=== PATIENT | male | born 1995 | race African-American/Black ===

== ENCOUNTER 2019-07-18 21:22 | Emergency (ER) | payer MEDICAID, SELFPAY ==
--- NOTE | ~2019-07-18 | XR_ITS ---
EXAMINATION: XR chest 2V DATE: 07/18/2019 21:58 INDICATION: Left chest pain. TECHNIQUE: Frontal and lateral views of the chest were obtained. COMPARISON: None. FINDINGS: The chest demonstrates clear lungs without pneumonia, pleural effusion, or pneumothorax. Th e heart size is normal. IMPRESSION: 1. No acute cardiopulmonary disease. Reviewed, dictated and finalized at location A.
[2019-07-18 21:27] VITALS: BP 147/104; PULSE 83; RESP 14; TEMP 36.8; O2SAT 100
--- NOTE | 2019-07-18 21:32 | ECG_ITS ---
Measurements Intervals [place] Rate: 80 P: 88 [place]: 175 QRS: 66 QRSD: 94 T: 58 QT: 352 QTc: 406 Interpretive Statements SINUS RHYTHM BASELINE ARTIFACT- I, II, III, AVR, AVL NORMAL ECG Electronically Signed On 07-19-2019 7:11:22 CDT by Reyes Rivera D.O.
[2019-07-18 21:34] VITALS: PULSE 82
[2019-07-18] MEDS: ASPIRIN 81 MG CHEWABLE TABLET 324 MG PO (21:52)
[2019-07-18 22:23] LABS: Basophils Percent Auto 0.5 % (0.2-1.2); Eosinophils Absolute Auto 0.2 K/mm3 (0-0.3); Eosinophils Percent Auto 2.6 % (0-4.4); Hematocrit 44.4 % (42.0-52.0); Hemoglobin 14.9 g/dL (14.0-18.0); Immature Granulocyte Absolute 0.01 K/mm3 (0.00-0.031); Immature Granulocyte Percent A 0.2 % (0-0.5); Lymphocytes Absolute Auto 2.83 K/mm3 (0.9-3.2); Lymphocytes Percent Auto 46.8 % (18.3-44.2); Mean Corpuscular HGB Conc 33.6 g/dl (32-36); Mean Corpuscular Volume 86.4 fl (80-100); Mean Platelet Volume 9.9 fl (7.4-10.4); Monocytes Absolute Auto 0.5 K/mm3 (0.1-0.6); Monocytes Percent Auto 8.3 % (2.6-8.5); Neutrophils Absolute Auto 2.5 K/mm3 (1.3-6.7); Neutrophils Percent Auto 41.6 % (45.5-73.1); Platelet Count Result 256 k/mm3 (150-375); Red Blood Count 5.14 M/mm3 (4.6-6.20); Red Cell Distribution Width 12.5 % (11.5-14.5); White Blood Count 6.1 K/mm3 (4.5-10.0)
[2019-07-18 22:30] LABS: Partial Thromboplastin Time 30.4 SECONDS (22.3-36.8)
[2019-07-18 22:38] VITALS: BP 120/78; PULSE 63; RESP 20; O2SAT 100
--- NOTE | 2019-07-18 22:43 | ED.CHESTPAIN ---
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 Worse with breathing, patient reports a lot of lifting and pushing at work.. Currently feeling okay. Patient does not smoke or drink, healthy otherwise Related Data Home Medications Medication Instructions Recorded Confirmed atenolol 25 mg PO DAILY 07/18/19 Allergies Allergy/AdvReac Type Severity Reaction Status Date / Time No Known Allergies Allergy Verified 07/18/19 21:33 Review of Systems Review of Systems: Narrative: CONSTITUTIONAL: Denies fever, chills, or sweats. EYES: Denies visual changes, redness, or discharge. ENT: Denies rhinorrhea, congestion, sore throat, or otalgia. CARDIOVASCULAR: Denies chest pain, palpitations, or edema. RESPIRATORY: Denies cough or dyspnea. GASTROINTESTINAL: Denies abdominal pain, nausea, vomiting, or diarrhea. GENITOURINARY: Denies dysuria or hematuria. SKIN: Denies rash or itching. MUSCULOSKELETAL: Denies back pain, joint pain, or myalgia. NEUROLOGIC: Denies headache, numbness, or weakness. PSYCHIATRIC: Denies anxiety or depression. [facility] Social History Social History Gender identity (if verbalized by the patient): Male Exam Narrative: Exam Narrative: General appearance: Well-developed, well-nourished Skin: Normal color Head: Normocephalic, nontraumatic Eyes: Clear conjunctiva ENT: Oropharynx normal, ears normal, nose normal Neck: Supple, nontender Chest and respiratory: Airway patent, no respiratory distress, no accessory muscle use Heart: Regular rate/rhythm Abdomen: Soft, nontender, no organomegaly, quiet bowel sounds Vascular: Normal peripheral pulses, normal capillary refill. Musculoskeletal: Normal range of motion, nontender back Neurologic: Alert and oriented ?3, [employer] is normal as tested, no gross motor deficit Course Course Emergency Course: Stable Vital Signs Vital signs: Vital Signs Temperature 36.8 C 07/18/19 21:27 Pulse Rate 83 07/18/19 21:27 Respiratory Rate 14 07/18/19 21:27 Blood Pressure 147/104 H 07/18/19 21:27 Pulse Oximetry 100 07/18/19 21:27 Temperature 36.8 C 07/18/19 21:27 Pulse Rate 63 07/18/19 22:38 Respiratory Rate 20 07/18/19 22:38 Blood Pressure 120/78 07/18/19 22:38 Pulse Oximetry 100 07/18/19 22:38 MDM - Chest Pain MDM Narrative Medical decision making narrative: Noncardiac chest pain is my concern. Chest x-ray, EKG, labs ordered. Further plan to follow Differential Diagnosis Differential diagnosis: Likely pneumothorax, atypical chest pain and costochondritis Lab Data Result diagrams: 07/18/19 22:14 Labs: Lab Results 07/18/19 07/18/19 07/18/19 Range/Units 22:14 22:14 22:14 WBC 6.1 (4.5-10.0) K/mm3 RBC 5.14 (4.6-6.20) M/mm3 Hgb 14.9 (14.0-18.0) g/dL Hct 44.4 (42.0-52.0) % MCV 86.4 (80-100) fl MCH 29.0 (26-34) pg MCHC 33.6 (32-36) g/dl RDW 12.5 (11.5-14.5) % Plt Count 256 (150-375) k/mm3 MPV 9.9 (7.4-10.4) fl Immature Gran % (Auto) 0.2 (0-0.5) % Neut % (Auto) 41.6 L (45.5-73.1) % Lymph % (Auto) 46.8 H (18.3-44.2) % [place] % (Auto) 8.3 (2.6-8.5) % Eos % (Auto) 2.6 (0-4.4) % Baso % (Auto) 0.5 (0.2-1.2) % Lymph # (Auto) 2.83 (0.9-3.2) K/mm3 [place] # (Auto) 0.5 (0.1-0.6) K/mm3 Eos # (Auto)
[2019-07-18 22:46] LABS: Troponin I < 0.012 ng/mL (0.000-0.034)
[2019-07-18 23:27] VITALS: BP 116/71; PULSE 60; RESP 15; O2SAT 98
== END 2019-07-18 23:28 | disposition home or self-care (01) ==
PROVIDERS: Emergency Provider Emergency Medicine
DX: R07.89 Other chest pain (principal)
CPT/HCPCS: 36415; 71046; 84484; 85025; 85730; 93005; 99284; A9270

== ENCOUNTER 2023-08-28 20:27 | Emergency (ER) | payer OTHER, SELFPAY ==
[2023-08-28 20:53] VITALS: BP 144/70; PULSE 81; RESP 16; TEMP 36.8; O2SAT 99
[2023-08-28 21:24] LABS: Strep Group A RT-PCR DETECTED (Negative)
[2023-08-28 21:39] LABS: Influenza A QL RT-PCR Negative (Negative); Influenza B QL RT-PCR Negative (Negative); RSV RNA, RT-PCR Negative (Negative); SARS-CoV-2 RNA PCR Negative (Negative)
--- NOTE | 2023-08-28 21:49 | ED.GENADULT ---
HPI - General Adult General Chief complaint: Dental/Oral Stated complaint: SORE THROAT Time Seen by Provider: 08/28/23 21:48 History of Present Illness HPI narrative: Patient is a 28 year old male with history of SVT, on atenolol here with sore throat. He notes that he was watching his son and stepson over the weekend and was unaware that they had strep throat. On Friday he began having a sore throat and some pain with swallowing. He notes subjective fever on Friday. He has been able to swallow his secretions without difficulty. He notes some pain with swallowing. He denies any difficulty breathing. He does believe that he has had some swollen lymph nodes in his neck. He has not taken anything for his pain at home. No associated cough, congestion, diarrhea, abdominal pain. Related Data Home Medications Medication Instructions Recorded Confirmed atenolol 25 mg tablet 25 mg PO DAILY 07/18/19 Allergies Allergy/AdvReac Type Severity Reaction Status Date / Time No Known Allergies Allergy Verified 08/28/23 20:56 Review of Systems Review of Systems: All systems reviewed & are unremarkable except as noted in HPI and below PMFSH Social History Social History Gender identity (if verbalized by the patient): Male Exam Narrative: GENERAL: Well-appearing, well-nourished, and in no acute distress. HEAD: Normocephalic, atraumatic. EYES: PERRLA and EOMI. ENT: Nares clear. Mucous membranes moist. Posterior pharyngeal erythema and edema, uvula midline, no obvious parapharyngeal abscess. [place] anterior cervical lymphadenopathy present bilaterally. No stridor. NECK: Supple. CHEST: Clear to auscultation. No respiratory distress. HEART: Regular rate and rhythm. Normal peripheral pulses. ABDOMEN: Soft, nontender, nondistended. EXTREMITIES: Normal range of motion. No edema. SKIN: Warm, dry, no rash. NEURO: No focal deficits. Alert and oriented x3. PSYCH: Normal mood and affect. Course Course Emergency Course: Chart review performed. Patient here a sore throat swollen tonsils since Friday. Triage vitals grossly normal. Triage workup shows negative influenza, negative RSV, negative COVID. He is positive for group a strep. Patient seen evaluated, nontoxic appearing, low suspicion for deep space infection. He is strep positive. Initially planned on pen VK as well as a dose of Decadron to help with symptoms however patient states that he hates taking pills. Will do IM dose of pen G. Patient advised follow-up close with his primary care doctor and take Tylenol and ibuprofen as needed for pain at home. The results of pertinent diagnostic studies and exam findings were discussed. The patient?s provisional diagnosis and plan of care were discussed with the patient and present family. The patient and/or present family expressed understanding of the diagnosis and plan. The nurse was instructed to provide written instructions and appropriate follow-up information. The patient understands their need and responsibility to obtain additional follow-up as instructed. The risks of medications administered and prescribed were discussed with the patient and family present. Vital Signs Vital signs: Vital Signs Temperature 98.3 F 08/28/23 20:53 Pulse Rate 81 08/28/23 20:53 Respiratory Rate 16 08/28/23 20:53 Blood Pressure 144/70 H 08/28/23 20:53 Pulse Oximetry 99 08/28/23 20:53 Oxygen Delivery Room Air 08/28/23 20:53 Temperature 98.3 F 08/28/23 20:53 Pulse Rate 81 08/28/23 20:53 Respiratory Rate 16 08/28/23 20:53 Blood Pressure 144/70 H 08/28/23 20:53 Pulse Oximetry 99 08/28/23 20:53 Oxygen Delivery Room Air 08/28/23 20:53 Medical Decision Making Vital Signs Vital Signs: Vital Signs Temperature 98.3 F 08/28/23 20:53 Pulse Rate 81 08/28/23 20:53 Respiratory Rate 16 08/28/23 20:53 Blood Pressure 144/70 H 08/28/23 20
[2023-08-28] MEDS: dexAMETHasone SOD PHOS INJ 10 MG/ML 1 ML VIAL BY MOUTH (22:01)
[2023-08-28] MEDS: PENICILLIN G BENZATHINE 1,200,000 UNITS/2 ML SYRINGE 1200000 UNITS IM (22:19)
[2023-08-28 22:33] VITALS: BP 138/77; PULSE 67; RESP 18; TEMP 36.6; O2SAT 99
== END 2023-08-28 22:34 | disposition home or self-care (01) ==
LOC: ANHED 22:31
PROVIDERS: Emergency Medicine; Emergency Provider Student in an Organized Health Care Education/Training Program
DX: J02.0 Streptococcal pharyngitis (principal); Z20.822 Contact with and (suspected) exposure to COVID-19
CPT/HCPCS: 87637; 87651; 96372; 99283; J0561; J1100

== ENCOUNTER 2025-02-25 10:32 | Emergency (ER) | payer OTHER, SELFPAY ==
[2025-02-25 10:47] VITALS: BP 151/87; PULSE 85; RESP 18; TEMP 36.2; O2SAT 99
--- NOTE | 2025-02-25 11:09 | ED_ITS ---
HPI - General Adult General Chief complaint: Unspecified Stated complaint: Medicine Refill Time Seen by Provider: 02/25/25 11:11 Source: patient, RN notes reviewed and old records reviewed Mode of arrival: ambulatory Limitations: no limitations History of Present Illness HPI narrative: 29-year-old male presents to the [facility] with wanting a refill on his atenolol 25 mg. According to his medical record the last 2 refills came from [facility]. multiple refills had come from different urgent cares. Patient states he has not found time to get a primary care provider. Denies any symptoms currently Related Data Home Medications ?Medication ?Instructions ?Recorded ?Confirmed ?Last Taken ?Type atenolol 25 mg tablet 25 mg PO DAILY 07/18/19 Unk nown History Allergies Allergy/AdvReac Type Severity Reaction Status Date / Time No Known Allergies Allergy Verified 02/25/25 11:08 Review of Systems Review of Systems: All systems reviewed & are unremarkable except as noted in HPI and below Constitutional: Constitutional: Reports no additional constitutional complaints Cardiovascular: Cardiovascular: Reports no additional cardiovascular complaints, Denies chest pain and Denies dyspnea Respiratory: Respiratory: Reports no additional respiratory complaints, Denies chest congestion, Denies cough and Denies dyspnea Musculoskeletal: Musculoskeletal: Reports no additional musculoskeletal complaints Integumentary/Breasts: Skin/Breast: Reports system reviewed and no additional complaints, except as docu PMFSH Social History Social History Gender identity (if verbalized by the patient): Male Comments At the time of my signature, I reviewed and agree with the nursing past medical, surgical, social, and family history. There is no relevant family history pertinent to the patient complaint. Exam Const: General: cooperative, healthy appearing, comfortable, no acute distress, well developed, alert and well nourished Nutritional Appearance: well nourished Orientation/consciousness: patient oriented x3 Limitations: no limitations HENMT: Head: normal to inspection Eyes: General: appearance normal, both eyes and all related structures Alignment and Position: alignment normal Neck: Neck: normal visual inspection, full ROM, no lymphadenopathy and no meningeal signs Chest: Chest palpation & inspection: normal inspection of the chest Resp: Effort & Inspection: normal respiratory effort and able to speak in complete sentences Cardio: Rate: regular rate Skin: General skin exam: normal color and no rashes or lesions noted Neuro: General: patient oriented x3, gait normal, moves all extremities and no meningeal signs Cognition (Neuro): normal cognition Speech: normal speech Gait exam (Neuro): Normal gait present Extrem: General: normal to inspection, full ROM, capillary refill normal and normal gait Psych: Appearance: grossly normal and well kempt Mental Status: mental status grossly normal Speech and movement: Normal speech and movement present and Clear speech present Affect: normal affect Attitude: cooperative Course Course Level of Care: Express Care Visit Vital Signs Vital signs: Vital Signs Temperature 97.2 F L 02/25/25 10:47 Pulse Rate 85 02/25/25 10:47 Respiratory Rate 18 02/25/25 10:47 Blood Pressure 151/87 H 02/25/25 10:47 Pulse Oximetry 99 02/25/25 10:47 Oxygen Delivery Room Air 02/25/25 10:47 Temperature 97.2 F L 02/25/25 10:47 Pulse Rate 85 02/25/25 10:47 Respiratory Rate 18 02/25/25 10:47 Blood Pressure 151/87 H 02/25/25 10:47 Pulse Oximetry 99 02/25/25 10:47 Oxygen Delivery Room Air 02/25/25 10:47 Reviewed Medical Decision Making MDM Narrative Medical decision making narrative: patient sitting comfortably in exam room. Patient is nontoxic, vitals stable. Patient presents requesting a refill of his atenolol. Discussed with patient last 6 prescription had come from either [facility] her urgent care. list of providers given to patient. Discussed that we normally do not do refills of chronic medications. Two weeks given of medication. List of primary care providers given patient is appropriate for outpatient treatment with close follow-up Discharge instructions reviewed with patient, as well as provided in writing per nursing staff. The instructions also include specific and strict return/GO TO THE ER as well as f/u information. All questions have been answered, and the patient deny any further questions with discharge and discharge plan. Some parts of this dictation were generated by voice recognition software and may contain typographical and/or grammatical inaccuracies. Differential Diagnosis Differential Diagnosis: hypertension, medication refill Medical Records Medical records reviewed: Yes I reviewed the external patient's medical records. Vital Signs Vital Signs: Vital Signs Temperature 97.2 F L 02/25/25 10:47 Pulse Rate 85 11/21/25 10:47 Respiratory Rate 18 02/25/25 10:47 Blood Pressure 151/87 H 02/25/25 10:47 Pulse Oximetry 99 02/25/25 10:47 Oxygen Delivery Room Air 02/25/25 10:47 Temperature 97.2 F L 02/25/25 10:47 Pulse Rate 85 02/25/25 10:47 Respiratory Rate 18 02/25/25 10:47 Blood Pressure 151/87 H 02/25/25 10:47 Pulse Oximetry 99 02/25/25 10:47 Oxygen Delivery Room Air 02/25/25 10:47 Reviewed Lab Data Lab results reviewed: Yes I reviewed the patient's lab results. Labs: Reviewed Critical Care Time Critical Care Time Critical Care Time: No Discharge Plan Discharge Clinical Impression: Encounter for medication refill, History of hypertension Patient Disposition: Home Condition: Stable Instructions: Antibiotic Form, Chronic Hypertension (DC) Additional Instructions: it is extremely important you follow-up with primary care provider. If you are having a hard time finding a physician please call our [facility] liaison at [phone]. Patient Language: Italian Prescriptions: New atenolol 25 mg tablet 25 mg PO DAILY Qty: 14 0RF No Action atenolol 25 mg Tablet 25 mg PO DAILY Follow-up/Referrals: Marie Bonilla DO [Physician, Family Practice] - 1 Week Clinical Impression: Encounter for medication refill PHYSICIAN,PHARMACY ORDER ENTRY TECHNICIAN [Primary Care Provider, Internal Medicine] Stand Alone Forms: Work/School Release IP Time of Disposition: 11:18
== END 2025-02-25 11:30 | disposition home or self-care (01) ==
PROVIDERS: Emergency Provider Nurse Practitioner
DX: Z76.0 Encounter for issue of repeat prescription (principal); I10 Essential (primary) hypertension
CPT/HCPCS: 99211; G0463